=== PATIENT | female | born 1930 | race Caucasian/White ===

== ENCOUNTER 2017-03-06 11:44 | Day surgery (SDC) | payer MEDICARE, OTHER ==
[2017-03-04 12:31] LABS: Basophils # (auto) 0 uL; Basophils % (auto) 0.8 % (0.0-2.0); Eosinophils # (auto) 0.1 uL; Eosinophils % (auto) 3.1 % (0.0-7.0); Hematocrit 36.1 % (36.0-46.0); Hemoglobin 11.7 g/dL (12.2-16.2); Lymphocytes # (auto) 0.9 uL; Mean Corpuscular Hemoglobin 30.3 pg (28.0-32.0); Mean Corpuscular Hgb Conc. 32.3 g/dL (32.0-36.0); Mean Corpuscular Volume 93.8 fL (80.0-100.0); Monocytes # (auto) 0.7 uL; Monocytes % (auto) 13.7 % (0.0-12.0); Neutrophils % (auto) 63.4 % (37.0-80.0); Nucleated Red Blood Cells % 0.1 %; Platelet Count (auto) 293 10^3/uL (140-450); Red Blood Cells 3.85 10^6/uL (4.0-5.20); Red Cell Distribution Width 15.6 % (11.8-14.3); White Blood Cell 4.8 10^3/uL (4.4-10.8)
[2017-03-04 12:58] LABS: INR 0.94 (0.9-1.15); Partial Thromboplastin Time 28.7 sec (22.64-33.71); Prothrombin Time 10.2 sec (9.37-12.3)
[~2017-03-06] VITALS: Ht 162.6 cm; Wt 64.9 kg
[~2017-03-06 11:44] MED LIST: ASPI81TA27 PO; BIMA0.01 EACHEYE; CALC625T35 PO; DOCU-94 PO; ESCI5TAB14 PO; FOLI1TAB6 PO; GABA100C9 PO; METH2.5T3 PO; MULTTAB OR; PRAVASTATIN; PRE5T OR
[2017-03-06] MEDS ORDERED: LIDOCAINE HCL 2 % INJ 2ML MPF NEB ONE (12:15)
[2017-03-06] MEDS ORDERED: MEPERIDINE HCL (50 MG/ML) 1 ML VIAL IM ONE (12:15)
[2017-03-06] MEDS ORDERED: LIDOCAINE 2%HCL (LOCAL ANESTH.) INJ 20ML MDV ONE ×2 (12:25→12:26)
[2017-03-06] MEDS ORDERED: BENZOCAINE (DENTAL) 20 % SPRAY 60ML MT ONE (12:25)
[2017-03-06] MEDS ORDERED: LIDOCAINE HCL 2 % INJ 2ML MPF ONE (12:26)
[2017-03-06] MEDS ORDERED: SODIUM CHLORIDE LOCK 30 ML ONE (12:26)
[2017-03-06] MEDS ORDERED: EPINEPHrine HCL 1 MG/1 ML AMP ONE (12:26)
[2017-03-06] MEDS ORDERED: LIDOCAINE 2% JELLY 11ml (GLYDO) ONE ×2 (12:27)
[2017-03-06] MEDS ORDERED: LIDOCAINE HCL 2% TOP JELLY 5ML TOP ONE (12:30)
[2017-03-06] MEDS ORDERED: MEPERIDINE HCL (50 MG/ML) 1 ML VIAL ONE (12:34)
[2017-03-06] MEDS: MIDAZOLAM HCL 5 MG/ML-1ML VIAL ONE ×3 (13:27→13:37)
[2017-03-06 15:00] VITALS: BP 138/61
== END 2017-03-06 15:00 | disposition home or self-care (01) ==
LOC: GI 11:44
PROVIDERS: ATTEND Internal Medicine Pulmonary Disease
DX: R04.2 Hemoptysis (principal); Z53.8 Procedure and treatment not carried out for other reasons; D64.9 Anemia, unspecified; Z88.5 Allergy status to narcotic agent; Z88.8 Allergy status to other drugs, medicaments and biological substances
CPT/HCPCS: 31623; 31625; 36415; 85025; 85610; 85730; 94640; J0171; J2175; J2250; 99152

== ENCOUNTER 2017-03-18 12:22 | Day surgery (SDC) | payer MEDICARE, OTHER ==
[2017-03-15 11:16] LABS: Basophils # (auto) 0.1 uL; Basophils % (auto) 1.1 % (0.0-2.0); Eosinophils # (auto) 0.2 uL; Eosinophils % (auto) 2.9 % (0.0-7.0); Hematocrit 35.8 % (36.0-46.0); Hemoglobin 11.7 g/dL (12.2-16.2); Lymphocytes # (auto) 1.3 uL; Lymphocytes % (auto) 23.3 % (10.0-50.0); Mean Corpuscular Hemoglobin 30.5 pg (28.0-32.0); Mean Corpuscular Hgb Conc. 32.7 g/dL (32.0-36.0); Mean Corpuscular Volume 93.5 fL (80.0-100.0); Monocytes # (auto) 0.6 uL; Monocytes % (auto) 10.8 % (0.0-12.0); Neutrophils # (auto) 3.4 uL; Neutrophils % (auto) 61.9 % (37.0-80.0); Nucleated Red Blood Cells % 0.1 %; Platelet Count (auto) 329 10^3/uL (140-450); Red Blood Cells 3.83 10^6/uL (4.0-5.20); Red Cell Distribution Width 15.6 % (11.8-14.3); White Blood Cell 5.4 10^3/uL (4.4-10.8)
[2017-03-15 11:28] LABS: INR 0.93 (0.9-1.15); Prothrombin Time 10.1 sec (9.37-12.3)
[2017-03-15 11:44] LABS: Albumin 3.9 g/dL (3.4-5.0); BUN/Creatinine Ratio 31.8; Bilirubin, Total 0.5 mg/dL (0.2-1.0); Calcium 8.7 mg/dL (8.5-10.1); Potassium 4.3 mmol/L (3.5-5.1); Total Protein 7.8 g/dL (6.4-8.2)
[~2017-03-18] VITALS: Ht 162.6 cm; Wt 65.3 kg
[~2017-03-18 12:22] MED LIST changes: -BIMA0.01 EACHEYE; -PRE5T OR
[2017-03-18] MEDS ORDERED: LIDOCAINE HCL 2 % INJ 2ML MPF NEB ONE (12:30)
[2017-03-18] MEDS ORDERED: MEPERIDINE HCL (50 MG/ML) 1 ML VIAL IM ONE (12:30)
[2017-03-18] MEDS ORDERED: LIDOCAINE HCL 2 % INJ 2ML MPF ONE (12:47)
[2017-03-18] MEDS ORDERED: LIDOCAINE 2%HCL (LOCAL ANESTH.) INJ 20ML MDV ONE (13:09)
[2017-03-18] MEDS ORDERED: SODIUM CHLORIDE LOCK 30 ML ONE (13:09)
[2017-03-18] MEDS ORDERED: LIDOCAINE HCL 2% TOP JELLY 5ML TOP ONE (13:10)
[2017-03-18] MEDS ORDERED: EPINEPHrine HCL 1 MG/1 ML AMP ONE (13:10)
[2017-03-18] MEDS ORDERED: LIDOCAINE 2% JELLY 11ml (GLYDO) ONE (13:10)
[2017-03-18] MEDS ORDERED: SUCCINYLCHOLINE CHLORIDE 20 MG/ML 10ML VIAL IV ONE (13:37)
[2017-03-18] MEDS ORDERED: fentaNYL CITRATE 100 MCG/2 ML VL ONE (13:42)
[2017-03-18] MEDS ORDERED: MIDAZOLAM HCL 1MG/1ML-2 ML VIAL ONE (13:42)
[2017-03-18] MEDS ORDERED: DEXAMETHASONE SOD PHOS 10MG/1ML VIAL INJ ONE (14:06)
[2017-03-18] MEDS ORDERED: PROPOFOL 10 MG/ML 20 ML IV ONE (14:06)
[2017-03-18] MEDS ORDERED: MORPHINE SULF INJ 2 MG/ML SYRINGE 1ML IV PRN (14:30)
[2017-03-18] MEDS ORDERED: ePHEDrine SULFATE 50 MG/ML AMP IV PRN (14:30)
[2017-03-18] MEDS ORDERED: HYDROmorphone HCL 2 MG/ML VL IV PRN (14:30)
[2017-03-18] MEDS ORDERED: MIDAZOLAM HCL 1MG/1ML-2 ML VIAL IV PRN (14:30)
[2017-03-18] MEDS ORDERED: ONDANSETRON HCL 4 MG/2 ML VIAL IV ONE (14:30)
[2017-03-18] MEDS ORDERED: KETOROLAC TROMETH 30 MG/ML 1ML VIAL IV ONE (14:30)
[2017-03-18] MEDS ORDERED: LABETALOL HCL 5 MG/ML 4ML SYRINGE IV PRN (14:30)
[2017-03-18 16:01] VITALS: BP 132/58
== END 2017-03-18 16:08 | disposition home or self-care (01) ==
LOC: GI 12:22
PROVIDERS: ATTEND Internal Medicine Pulmonary Disease
DX: G54.0 Brachial plexus disorders (principal); R04.2 Hemoptysis; J44.9 Chronic obstructive pulmonary disease, unspecified; J43.9 Emphysema, unspecified; M19.90 Unspecified osteoarthritis, unspecified site; I25.10 Atherosclerotic heart disease of native coronary artery without angina pectoris; I63.9 Cerebral infarction, unspecified
CPT/HCPCS: 31623; 31625; 36415; 80053; 85025; 85610; 88305; 88341; 88342; 94640; J0171; J0330; J1100; J2175; J2250; J2704; J3010